=== PATIENT | female | born 1950 | race Caucasian/White ===

== ENCOUNTER 2019-01-31 11:30 | Inpatient (IN) | payer MEDICARE ==
[2019-01-31 11:43] VITALS: BMI 24.0
[2019-01-31 12:39] LABS: Hemoglobin 13.6 g/dL (12.0-16.0); Mean Corpuscular HGB CONC 32.9 g/dL (32.0-36.0); Mean Corpuscular Hemoglobin 29.5 pg (27.0-31.0); Mean Corpuscular Volume 89.7 fL (78.0-98.0); Mean Platelet Volume 7.6 fL (7.4-10.4); Platelet Count 279 thou/uL (130-400); RBC Distribution Width 12.3 % (11.5-14.5); White Blood Cell (WBC) Count 6.5 thou/uL (4.8-10.8)
--- NOTE | 2019-02-01 07:19 | HP ---
REASON FOR ADMISSION: Uterine prolapse with symptomatic cystocele. SCHEDULED PROCEDURE: Total laparoscopic hysterectomy with bilateral salpingectomy, uterosacral ligament suspension, and anterior repair. HISTORY OF PRESENT ILLNESS: Ms. Foley is a 68-year-old 10, para 9, AB1, who was referred to me by [facility]. She complains of pressure and pain from vaginal prolapse is worse with standing. She splints for urination. She has no incontinence. She has no problems with defecation. She is sexually active. She desires definitive surgical management. 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 PAST MEDICAL HISTORY: None. PAST SURGICAL HISTORY: Knees. MEDICATIONS: Ibuprofen. The patient did Medrol Dosepak approximately 2 weeks ago. ALLERGIES: PENICILLIN. NO ANAPHYLAXIS. SOCIAL HISTORY: Denies tobacco, alcohol, or IV drug abuse. FAMILY HISTORY: Noncontributory REVIEW OF SYSTEMS: Noncontributory. PHYSICAL EXAMINATION: VITAL SIGNS: White female, pleasant, alert, oriented x3. 5 feet 4 inches, weight 140, BMI 28.4, blood pressure 112/64, pulse 71, and respirations 18. HEENT: Within normal limits. LUNGS: Clear to auscultation bilaterally. HEART: Regular rhythm. BREASTS: Without masses bilaterally. ABDOMEN: Soft and nontender without rebound or guarding. GENITALIA: Vulva without lesions. Vagina, the patient has a mildly atrophic vaginal mucosa with a third-degree cystocele, first-degree rectocele, and uterine prolapse to the level of the introitus. Cervix appears normal. Uterus is anteverted, less than four-week size. No adnexal masses noted. EXTREMITIES: No clubbing, cyanosis, or edema. IMPRESSION: Symptomatic uterine prolapse with cystocele. PLAN: Discussed with the patient options including pessary. The patient desires surgical management. We will proceed with total laparoscopic hysterectomy, bilateral salpingectomy, uterosacral ligament vault suspension, and anterior repair. The patient understands risks and benefits of procedure including bleeding, infection, incontinence, damage to the bladder or ureters, possible prolonged drainage with Martinez catheter, and recurrence of prolapse or cystocele. She gives verbal and written informed consent. We will administer appropriate antibiotic and DVT prophylaxis. Job ID: [id number]
[2019-02-01] MEDS ORDERED: Gabapentin 300 MG CAP ONE (09:45)
[2019-02-01] MEDS ORDERED: CeleCOXIB 100 MG CAP ONE (09:45)
[2019-02-01] MEDS ORDERED: Clindamycin/D5W 900 mg/50 ml Premix Bag ONE (09:59)
[2019-02-01] MEDS ORDERED: Levofloxacin 500 mg/D5W 100 ml Premix Bag ONE (09:59)
[2019-02-01] MEDS ORDERED: Famotidine/PF 20 mg/2ml Vial ONE (10:50)
[2019-02-01] MEDS ORDERED: Bupivacaine HCl 0.5%/Epinephrine 1:200,000/PF 30 ml Vial ONE (11:35)
[2019-02-01] MEDS ORDERED: Fentanyl 100 MCG/2 ML VIAL ONE ×2 (11:39)
[2019-02-01] MEDS ORDERED: Lidocaine 2% Jelly 5 ML TUBE ONE (11:39)
[2019-02-01] MEDS ORDERED: Midazolam HCl 2 mg/2 ml Vial ONE (11:49)
[2019-02-01] MEDS ORDERED: Lidocaine 1% w/Epinephrine 1:100K 20 ML VIAL ONE (13:07)
[2019-02-01] MEDS ORDERED: Promethazine HCl 25 MG/ML VIAL SLOW IVP PRN (14:26)
[2019-02-01] MEDS ORDERED: Ondansetron HCl/PF 4 MG/2 ML Vial IVP PRN (14:26)
[2019-02-01] MEDS ORDERED: Promethazine HCl 25 MG/ML VIAL IM PRN ×2 (14:26→16:55)
[2019-02-01 14:38] LABS: Bilirubin Negative (Negative); Blood, Urine Small (Negative); Clarity CLOUDY (Clear); Glucose, Urine (Dipstick) Negative (Negative); Leukocyte Negative (Negative); Nitrite Negative (Negative); Protein, Urine (Dipstick) 30 mg/dL (Neg-Trace); Specific Gravity, Urine 1.024 (1.002-1.036); Urobilinogen 0.2 mg/dL (0.2-1.0); pH, Urine 5.5 (5.0-9.0)
[2019-02-01 14:40] LABS: Bacteria/HPF Rare-Few HPF (None Seen); Squamous Epithelial 0-3 HPF (0-3)
[2019-02-01 14:42] LABS: Pathc Cast-AUWi Flag 4.76 (0-2.49)
[2019-02-01 14:59] LABS: Hyaline Casts/LPF NONE SEEN LPF (0-3 Hyaline); Other Casts/LPF None Seen LPF (0-3 Hyaline)
[2019-02-01] MEDS ORDERED: Ondansetron PF 4 MG/2 ML Vial IVP PRN (16:55)
[2019-02-01] MEDS ORDERED: Morphine 4 MG/ML VIAL SLOW IVP PRN (16:55)
[2019-02-01] MEDS ORDERED: Morphine 2 MG/ML SYRINGE SLOW IVP PRN (16:55)
[2019-02-01] MEDS ORDERED: Zolpidem Tartrate 5 MG TAB PO PRN (16:55)
[2019-02-01] MEDS: Acetaminophen 1,000 MG in Premix Bag 1 BAG IVPB SCH ×2 (17:26→21:18)
[2019-02-01] MEDS: Lactated Ringer's 1,000 ML IV SCH (21:17)
[2019-02-01] MEDS: Ibuprofen 800 MG TAB PO SCH (22:16)
--- NOTE | 2019-02-01 22:19 | OP ---
DATE OF PROCEDURE: 02/01/2019 PREOPERATIVE DIAGNOSIS: Uterine prolapse with symptomatic cystocele. POSTOPERATIVE DIAGNOSIS: Uterine prolapse with symptomatic cystocele. PROCEDURES PERFORMED: Total laparoscopic hysterectomy, bilateral salpingectomy, uterosacral ligament, vaginal cuff suspension with anterior repair. DONOR SUPPORT TECHNICIAN: Lilian Willis DO ANESTHESIA: General endotracheal. ESTIMATED BLOOD LOSS: Less than 50 mL. COMPLICATIONS: None. MEDICATIONS: Cipro and clindamycin per protocol, DVT prophylaxis with SCDs. DRAINS: Martinez to gravity. SPECIMENS: Uterus and tubes. OPERATIVE FINDINGS: 1. Cloudy urine noted at the Martinez catheter placement, sent for culture and UA. 2. Small postmenopausal uterus, tubes and ovaries without obvious pathology. 3. Prolapse to the introitus with general anesthesia. 4. Second or third-degree cystocele. 5. Hemostasis, persistent cloudy urine. COUNTS: Correct at the end of the procedure. DISPOSITION: Recovery room in good condition. DESCRIPTION OF PROCEDURE: After obtaining appropriate informed consent, the patient was taken to the operating room, where a general endotracheal anesthesia was achieved without difficulty. She was prepped and draped in the usual manner in dorsal lithotomy position. Sliding speculum was placed in the vagina. Cervix was identified and grasped with single-tooth tenaculum sounded to 8 cm. LAWRENCE manipulator was placed with 6 cm obturator and 3.5 cm vaginal cuff integrity assessor. Martinez catheter was placed and placed on a large syringe placed on the abdominal field. Taffy Candy Maker changed his gloves, turned attention to abdominal portion of the procedure. 5 mL of Marcaine was injected into the base of the umbilicus and a 12 mm skin incision was made. Veress needle was placed inside the abdominal cavity, insufflation was carried out with carbon dioxide for a maximum pressure of 15 with volume approximately 3.5 L. 12 mm trocar was placed without trauma to the underlying viscera. Omental adhesions to the anterior abdominal wall at the level of her tubal ligation approximately 2 cm below the umbilicus were noted. The patient was placed in steep Trendelenburg position. Right and left lateral da Ilan trocars were placed under direct visualization as well as an 11 mm certified medical technician assistant port in the right upper quadrant. Da Ilan was docked and monopolar scissors were placed in the right hand and bipolar fenestrated forceps in the left. Monopolar scissors were used to take down the omental adhesions anteriorly and bowel was not involved in this adhesive complex. Once this was done, the uterus was mobilized and the colon was mobilized out of the cul-de-sac and Giles. Uterosacral ligaments were identified bilaterally as well as the ureters, which were noted to be well lateral. The peritoneum was opened up between the uterosacral ligament and the ureter from back towards the sacrum, all way up to insertion onto the cervix to facilitate lack of tension on the ureter with suspensory suture placement. Good hemostasis was noted and attention was then turned to the right adnexa. The distal fallopian tube was removed and sent for pathologic analysis. The utero-ovarian coagulated and transected through the broad and round, carried down to the level of the internal cervical os with the vesicouterine was incised sharply and dissected off the lower uterine segment, cervix and upper vagina. Identical procedure was carried out on the patient's left. Skeletonization of the uterine vessels on the right were carried out. These were coagulated, transected, and taken down to the level of the cervicovaginal interface and then again identical procedure was carried out on the patient's left. Anteriorly, the vagina was entered at 12 o'clock, visualizing the ring of the LAWRENCE. Bladder was well down off the apex of the vagina, distant from 12 to 3 and 12 to 9 and then from 9 to 6 and 3 to 6 amputating the specimen, which was then pulled into the vagina to maintain pneumoperitoneum. Vaginal cuff was closed using a running locking 2-0 PDS suture lock in a running continuous manner from right to left and then back to right. Good hemostasis was noted and the bladder was noted to be well off the anterior aspect of the closure. The vaginal cuff was then elevated using the specimen that was in the vagina. 2-0 Ethibond was pulled into the abdominal cavity. The whipstitch with Ethibond was placed through the uterosacral ligament close to its insertion into the sacral region and then reefed along the uterosacral ligament to the apex of the vagina and then across the apex of the vagina and then back down the uterosacral ligament. This was tied intracorporeally to provide elevation of the right side of the apex of the vagina. Identical procedure was carried out on the patient's left. Throughout both, the ureters were visualized and noted to be well lateral and not to be kinked by application of the suture for suspension. After this was done, the cul-de-sac and Giles were closed off using a Fajardo's culdoplasty stitch using a 2-0 Ethibond as well. Suction irrigation was carried out and good hemostasis was noted. Tisseel was applied across all raw surfaces for hemostasis. The abdomen was desufflated of carbon dioxide after removing da Ilan instruments, undocking the da Ilan, removing trocars and undocking the da Ilan robot. The fascia was reapproximated at the umbilicus using an 0 Vicryl on a UR5 and skin was reapproximated x4 using 4-0 Monocryl and Dermabond. The patient's legs were rotated up. Martinez catheter was attached to the catheter bag and a narrow Mcclure was placed to vagina posteriorly. Good suspension of the apex of the vagina was noted and cystocele was significantly reduced by the hysterectomy and vault suspension. Mild cystocele was noted and this area was isolated using 2 Allis clamps and infiltrated underneath in the midline using lidocaine with epinephrine and incised with a 15 blade. Bladder was dissected off in the usual manner using a fluffed up Ray-Rowan sponge and then plication of the vesicovaginal fascia was carried out using interrupted horizontal mattresses of 2-0 Vicryl. Good hemostasis was noted. The vaginal mucosa was reapproximated using [id number] of 2-0 Vicryl. A moistened Kerlix sponge was placed in the vagina for pack. Martinez catheter was functioning well. The patient was awakened, extubated, and taken to the recovery room in good condition. Job ID: [id number]
[2019-02-02] MEDS: Lactated Ringer's 1,000 ML IV SCH (04:08)
[2019-02-02] MEDS: Ibuprofen 800 MG TAB PO SCH (05:15)
[2019-02-02 07:52] LABS: Hemoglobin 11.4 g/dL (12.0-16.0); Mean Corpuscular HGB CONC 32.8 g/dL (32.0-36.0); Mean Corpuscular Hemoglobin 29.3 pg (27.0-31.0); Mean Corpuscular Volume 89.4 fL (78.0-98.0); Mean Platelet Volume 7.8 fL (7.4-10.4); Platelet Count 245 thou/uL (130-400); RBC Distribution Width 12.2 % (11.5-14.5); Red Blood Cell (RBC) Count 3.89 mill/uL (4.20-5.40); White Blood Cell (WBC) Count 15.3 thou/uL (4.8-10.8)
[2019-02-02 08:42] VITALS: BP 86/50; TEMP 97.8
--- NOTE | 2019-02-02 10:48 | DIS ---
DATE OF ADMISSION: 02/01/2019 DATE OF DISCHARGE: 02/02/2019 PRIMARY PROCEDURE: Total laparoscopic hysterectomy, bilateral salpingectomy, da Ilan robot assist, uterosacral ligament vaginal vault suspension and anterior repair. SUMMARY OF HOSPITAL COURSE: The patient underwent the aforementioned procedure at noon on the 2nd. She had an uncomplicated intraoperative course with minimal blood loss. Postoperatively, hematocrit went from 41% to 35%, platelet count was normal. The patient was noted to have cloudy urine intraoperatively. This was sent for UA and culture. Culture was no growth on postop day #1. The urine read 30 protein, small blood, 7 to 10 rbc's, 4 to 6 wbc's, 4 to 6 transitional epithelial cells, and 10 to 20 renal epithelial cells. Clinically, the patient does not evidence UTI. We will not be given any extra antibiotics. We will follow up this urinalysis with Urology and formulate a further evaluation plan with them. The patient is ambulating and voiding well on postoperative day #1. T-max has been 98.2. The patient's blood pressure and pulse have all been within normal limits. She has voided over 500 mL x2 and has no sense of residual urine after voiding. Abdominal exam is unremarkable, nondistended. Bowel sounds good. Incisions intact. No CVA tenderness. Perineum is dry. Extremities without clubbing, cyanosis, or edema. The patient is discharged home. [place] and ibuprofen were sent out preoperatively. She will be followed up at [facility] [place] in 6 weeks and recommendations for followup on the urinalysis result after discussion with Urology. Job ID: [id number]
[2019-02-02] MEDS ORDERED: HYDROcodone/Acetaminophen 10/325 mg Tablet PO PRN ×2 (12:00)
== END 2019-02-02 11:12 | disposition home or self-care (01) | DRG 743 ==
LOC: SURG A 02-01 08:59 → 3SE 02-01 16:54
PROVIDERS: ADMIT Obstetrics & Gynecology; ATTEND Obstetrics & Gynecology
PROC: 0UT94ZZ Resection of Uterus, Percutaneous Endoscopic Approach (ICD-10-PCS; principal; 2019-02-01)
PROC: 0UT74ZZ Resection of Bilateral Fallopian Tubes, Percutaneous Endoscopic Approach (ICD-10-PCS; 2019-02-01)
PROC: 0USG4ZZ Reposition Vagina, Percutaneous Endoscopic Approach (ICD-10-PCS; 2019-02-01)
PROC: 0US94ZZ Reposition Uterus, Percutaneous Endoscopic Approach (ICD-10-PCS; 2019-02-01)
PROC: 8E0W4CZ Robotic Assisted Procedure of Trunk Region, Percutaneous Endoscopic Approach (ICD-10-PCS; 2019-02-01)
PROC: 0JQC3ZZ Repair Pelvic Region Subcutaneous Tissue and Fascia, Percutaneous Approach (ICD-10-PCS; 2019-02-01)
DX: N81.4 Uterovaginal prolapse, unspecified (principal); Z88.0 Allergy status to penicillin
CPT/HCPCS: 36415; 81001; 85027; 86850; 86900; 86901; 87086; 88307; J0131; J0670; J1956; J2001; J2250; J3010; J3490; Q9968; S0028